=== PATIENT | male | born 1960 | race Caucasian/White ===

== ENCOUNTER 2017-09-17 08:58 | Outpatient (CLI) | payer OTHER | END 2017-09-17 09:03 | disposition home or self-care (01) | LOC: RAD 08:58 | DX: M20.11 Hallux valgus (acquired), right foot (principal); M20.12 Hallux valgus (acquired), left foot ==

== ENCOUNTER 2019-05-22 06:55 | Outpatient (CLI) | payer OTHER | END 2019-05-22 07:01 | disposition home or self-care (01) | LOC: LAB 06:55 | DX: D50.8 Other iron deficiency anemias (principal); I10 Essential (primary) hypertension; D55.0 Anemia due to glucose-6-phosphate dehydrogenase [G6PD] deficiency; D51.1 Vitamin B12 deficiency anemia due to selective vitamin B12 malabsorption with proteinuria; E03.8 Other specified hypothyroidism; E06.3 Autoimmune thyroiditis; R97.0 Elevated carcinoembryonic antigen [CEA]; R97.8 Other abnormal tumor markers; D51.3 Other dietary vitamin B12 deficiency anemia; K57.90 Diverticulosis of intestine, part unspecified, without perforation or abscess without bleeding ==

== ENCOUNTER 2019-05-22 08:11 | Outpatient (CLI) | payer OTHER | END 2019-05-22 08:16 | disposition home or self-care (01) | LOC: SONOGRAMA 08:11 | DX: D51.3 Other dietary vitamin B12 deficiency anemia (principal); I10 Essential (primary) hypertension; E78.2 Mixed hyperlipidemia; K57.90 Diverticulosis of intestine, part unspecified, without perforation or abscess without bleeding; E03.8 Other specified hypothyroidism; E04.2 Nontoxic multinodular goiter ==

== ENCOUNTER 2019-06-26 07:36 | Outpatient (CLI) | payer OTHER | END 2019-06-26 07:38 | disposition home or self-care (01) | LOC: SONOGRAMA 07:36 | DX: E04.1 Nontoxic single thyroid nodule (principal) ==

== ENCOUNTER 2020-01-21 08:05 | Outpatient (CLI) | payer OTHER | END 2020-01-21 08:09 | disposition home or self-care (01) | LOC: LAB 08:05 | PROVIDERS: ATTEND Internal Medicine Hematology & Oncology | DX: D50.8 Other iron deficiency anemias (principal); I10 Essential (primary) hypertension; D51.8 Other vitamin B12 deficiency anemias; E03.8 Other specified hypothyroidism; D51.3 Other dietary vitamin B12 deficiency anemia; E78.2 Mixed hyperlipidemia; K57.90 Diverticulosis of intestine, part unspecified, without perforation or abscess without bleeding; R13.19 Other dysphagia; E04.2 Nontoxic multinodular goiter ==